=== PATIENT | female | born 1965 | race Caucasian/White ===

== ENCOUNTER 2019-04-30 08:47 | Outpatient (CLI) | payer BC ==
--- NOTE | 2019-05-14 07:46 | MMO ---
Bilateral MAMMO Bilat Screen [facility]. CLINICAL HISTORY: Patient is 54 years old and is seen for screening. The patient has a history of left Lumpectomy in 2001 - benign. VIEWS: The views performed were: bilateral craniocaudal with tomosynthesis and bilateral mediolateral oblique with tomosynthesis. FILMS COMPARED: The present examination has been compared to prior imaging studies performed at [facility] on 12/12/2014, 12/17/2015, 05/29/2017 and 05/10/2018. MAMMOGRAM FINDINGS: There are scattered fibroglandular densities. Finding 1: There are stable focal asymmetries seen in both breasts. Finding 2: There is a stable intramammary lymph node seen in the left breast. There are no suspicious masses, suspicious calcifications, or new areas of architectural distortion. IMPRESSION: THERE IS NO MAMMOGRAPHIC EVIDENCE OF MALIGNANCY. A ROUTINE FOLLOW-UP MAMMOGRAM IN 1 YEAR IS RECOMMENDED. THE RESULTS OF THIS EXAM WERE SENT TO THE PATIENT. ACR BI-RADS Category 2 - Benign finding MAMMOGRAPHY NOTE: 1. A negative mammogram report should not delay a biopsy if a dominant of clinically suspicious mass is present. 2. Approximately 10% to 15% of breast cancers are not detected by mammography. 3. Adenosis and dense breasts may obscure an underlying neoplasm. Reported by: SILVANA KUO MD Electonically Signed: [id number]
== END 2019-04-30 08:48 | disposition home or self-care (01) ==
LOC: BICMAMMO 08:47
PROVIDERS: ATTEND Family Medicine
DX: Z12.31 Encounter for screening mammogram for malignant neoplasm of breast (principal); Z91.89 Other specified personal risk factors, not elsewhere classified
CPT/HCPCS: 77063; 77067

== ENCOUNTER 2020-06-23 08:20 | Outpatient (CLI) | payer BC ==
--- NOTE | 2020-06-23 08:45 | BD ---
EXAM: DEXA bone density examination HISTORY: Menopause and osteoporosis screening COMPARISON: None FINDINGS: L1--bone mineral density 0.808 g/sq cm; T score -1.7. Z score -0.7 L2--bone mineral density 0.863 g/sq cm; T score -1.5; Z score -0.4 L3--bone mineral density 0.959 g/sq cm; T score -1.1; Z score 0.0 L4--bone mineral density 0.968 g/sq cm; T score -0.8, Z score 0.4 Total L1-L4--bone mineral density 0.907 g/sq cm; T score -1.3, Z score -0.1 Left femoral neck--bone mineral density0.700; T score -1.3, Z score -0.2 Total proximal left femur--bone mineral density 0.970; T score 0.2, Z score 1.2 This patient has a 10 year WHO fracture risk of a major osteoporotic fracture of 5.7% and of a hip fr acture of 0.3%. IMPRESSION: Based on the WHO criteria, the patient's bone mineral density is consideredOsteopenic. T he patient is at moderate risk for fracture.
--- NOTE | 2020-06-23 09:17 | MMO ---
Bilateral MAMMO Bilat Screen [facility]. CLINICAL HISTORY: Patient is 55 years old and is seen for screening. The patient has a history of left Lumpectomy in 2002 - benign. VIEWS: The views performed were: bilateral craniocaudal with tomosynthesis and bilateral mediolateral oblique with tomosynthesis. FILMS COMPARED: The present examination has been compared to prior imaging studies performed at [facility] on 04/30/2019, and at [facility] on 12/17/2015, 05/29/2017 and 05/10/2018. This study has been interpreted with the assistance of computer-aided detection. MAMMOGRAM FINDINGS: The breasts are almost entirely fat. There are two stable intramammary lymph nodes seen in the left breast. There are no suspicious masses, suspicious calcifications, or new areas of architectural distortion. IMPRESSION: THERE IS NO MAMMOGRAPHIC EVIDENCE OF MALIGNANCY. A ROUTINE FOLLOW-UP MAMMOGRAM IN 1 YEAR IS RECOMMENDED. THE RESULTS OF THIS EXAM WERE SENT TO THE PATIENT. ACR BI-RADS Category 2 - Benign finding MAMMOGRAPHY NOTE: 1. A negative mammogram report should not delay a biopsy if a dominant of clinically suspicious mass is present. 2. Approximately 10% to 15% of breast cancers are not detected by mammography. 3. Adenosis and dense breasts may obscure an underlying neoplasm. Reported by: DANIELLE ESCOBAR MD Electonically Signed: [id number]
== END 2020-06-23 08:21 | disposition home or self-care (01) ==
LOC: BICMAMMO 08:20
PROVIDERS: ATTEND Family Medicine
DX: Z12.31 Encounter for screening mammogram for malignant neoplasm of breast (principal); Z13.820 Encounter for screening for osteoporosis; E89.40 Asymptomatic postprocedural ovarian failure; M85.89 Other specified disorders of bone density and structure, multiple sites; Z91.89 Other specified personal risk factors, not elsewhere classified
CPT/HCPCS: 77063; 77067; 77080

== ENCOUNTER 2021-09-13 09:22 | Outpatient (CLI) | payer BC | END 2021-09-13 09:23 | disposition home or self-care (01) | LOC: CTENTCT 09:22 | PROVIDERS: ATTEND Otolaryngology Plastic Surgery within the Head & Neck | DX: J34.2 Deviated nasal septum (principal) | CPT/HCPCS: 70486 ==

== ENCOUNTER 2021-11-12 08:02 | Outpatient (CLI) | payer BC ==
[2021-11-12 19:56] LABS: SARS-CoV-2 PCR by NAA Not Detected (NotDetected)
== END 2021-11-12 08:03 | disposition home or self-care (01) ==
LOC: LABBT 08:02
PROVIDERS: ATTEND Otolaryngology Plastic Surgery within the Head & Neck
DX: Z01.818 Encounter for other preprocedural examination (principal); J34.2 Deviated nasal septum; J34.89 Other specified disorders of nose and nasal sinuses; K09.0 Developmental odontogenic cysts; Z20.822 Contact with and (suspected) exposure to COVID-19
CPT/HCPCS: 85014; U0003; U0005

== ENCOUNTER 2021-11-17 06:13 | Day surgery (SDC) | payer BC ==
[2021-11-12 11:58] VITALS: BMI 41.4
[2021-11-17] MEDS ORDERED: AFRIN NASAL MIST 15 ML BOT ONE (06:41)
[2021-11-17] MEDS ORDERED: Acetaminophen 500 MG TAB ONE (07:17)
[2021-11-17] MEDS ORDERED: Oxymetazoline HCl 0.05% (30 ML BOT) ONE (08:11)
[2021-11-17] MEDS ORDERED: Bacitracin Zinc Ointment 30 gm TUBE ONE (08:11)
[2021-11-17] MEDS ORDERED: Xylocaine 1% w/ Epi 1:100K 10 ML VIAL ONE (08:11)
[2021-11-17] MEDS ORDERED: Fentanyl 100 MCG/2 ML VIAL ONE (08:16)
[2021-11-17] MEDS ORDERED: Dexamethasone 20 MG/5 ML VIAL ONE (08:30)
[2021-11-17] MEDS ORDERED: PROPOFOL 200 MG/20 ML VIAL ONE (08:30)
[2021-11-17] MEDS ORDERED: Ondansetron PF 4 MG/2 ML Vial ONE (08:30)
[2021-11-17] MEDS ORDERED: Lidocaine 1% PF 5 ML VIAL ONE (08:30)
== END 2021-11-17 10:08 | disposition home or self-care (01) ==
LOC: SDC 06:13
PROVIDERS: ATTEND Otolaryngology Plastic Surgery within the Head & Neck
PROC: 09QK0ZZ Repair Nasal Mucosa and Soft Tissue, Open Approach (ICD-10-PCS; principal; 2021-11-17)
PROC: 09SM0ZZ Reposition Nasal Septum, Open Approach (ICD-10-PCS; principal; 2021-11-17)
DX: J34.2 Deviated nasal septum (principal); J34.89 Other specified disorders of nose and nasal sinuses; E78.5 Hyperlipidemia, unspecified; E89.0 Postprocedural hypothyroidism; E66.01 Morbid (severe) obesity due to excess calories; Z68.41 Body mass index [BMI] 40.0-44.9, adult; Z87.11 Personal history of peptic ulcer disease; Z79.82 Long term (current) use of aspirin; Z79.899 Other long term (current) drug therapy; Z91.012 Allergy to eggs
CPT/HCPCS: C1889; J3010

== ENCOUNTER 2022-02-17 10:46 | Outpatient (CLI) | payer BC | END 2022-02-17 10:47 | disposition home or self-care (01) | LOC: BICRAD 10:46 | PROVIDERS: ATTEND Internal Medicine Infectious Disease | DX: M86.172 Other acute osteomyelitis, left ankle and foot (principal) ==

== ENCOUNTER 2022-02-27 10:31 | Emergency (ER) | payer BC | END 2022-02-27 11:37 | disposition home or self-care (01) | LOC: ERS 10:31 | DX: T82.594A Other mechanical complication of infusion catheter, initial encounter (principal) | CPT/HCPCS: 99283 ==

== ENCOUNTER 2022-03-05 11:40 | Emergency (ER) | payer BC ==
[~2022-03-05 11:40] MED LIST: Iopamidol-370 76% 500 ML 1 ML ONE
[2022-03-05 13:57] LABS: #Basophils 0.1 thou/uL (0.0-0.2); #Eosinphils 0.3 thou/uL (0.0-0.7); #Lymphocytes 1.8 thou/uL (1.20-3.40); #Monocytes 0.6 thou/uL (0.11-0.59); #Neutrophils 8.2 thou/uL (1.40-6.50); %Basophils 0.8 % (0.0-1.0); %Eosinophils 3.1 % (0.0-10.0); %Lymphocytes 16.5 % (21.0-51.0); %Monocytes 5.5 % (0.0-10.0); %Neutrophils 74.1 % (42.0-75.0); Hemoglobin 15.4 g/dL (12.0-16.0); Mean Corpuscular HGB CONC 31.9 g/dL (32.0-36.0); Mean Corpuscular Hemoglobin 27.9 pg (27.0-31.0); Mean Corpuscular Volume 87.5 fL (78.0-98.0); Mean Platelet Volume 6.5 fL (7.4-10.4); Platelet Count 402 thou/uL (130-400); RBC Distribution Width 15.9 % (11.5-14.5); Red Blood Cell (RBC) Count 5.54 mill/uL (4.20-5.40); White Blood Cell (WBC) Count 11.1 thou/uL (4.8-10.8)
[2022-03-05 14:08] LABS: PTT 27.9 sec (22.9-36.1)
[2022-03-05 14:18] LABS: ALT (SGPT) 30 U/L (8-55); AST (SGOT) 22 U/L (5-34); Albumin 4.8 g/dL (3.5-5.0); Alkaline Phosphatase 82 U/L (40-110); Anion Gap 16 mmol/L (10-20); BUN (Urea Nitrogen) 13 mg/dL (9.8-20.1); Bilirubin, Total 0.4 mg/dL (0.2-1.2); Calc. Creatinine Clearance 0 mL/min (70-130); Calcium 9.8 mg/dL (7.8-10.44); Carbon Dioxide 22 mmol/L (22-29); Chloride 106 mmol/L (98-107); Globulin 3.1 g/dL (2.4-3.5); Glucose 94 mg/dL (70-105); Potassium 4.2 mmol/L (3.5-5.1); Protein, Total 7.9 g/dL (6.0-8.3); Sodium 140 mmol/L (136-145)
== END 2022-03-05 16:55 | disposition home or self-care (01) ==
LOC: ERS 11:40
DX: T82.848A Pain due to vascular prosthetic devices, implants and grafts, initial encounter (principal); R07.89 Other chest pain
CPT/HCPCS: 36415; 71275; 80053; 84484; 85025; 85610; 85730; 93005

== ENCOUNTER 2022-03-21 08:53 | Outpatient (CLI) | payer BC | END 2022-03-21 08:54 | disposition home or self-care (01) | LOC: BICRAD 08:53 | PROVIDERS: ATTEND Internal Medicine Infectious Disease | DX: M86.272 Subacute osteomyelitis, left ankle and foot (principal) ==

== ENCOUNTER 2023-09-19 08:02 | Outpatient (CLI) | payer BC | END 2023-09-19 08:03 | disposition home or self-care (01) | LOC: BICMAMMO 08:02 | PROVIDERS: ATTEND Family Medicine | DX: N63.12 Unspecified lump in the right breast, upper inner quadrant (principal) | CPT/HCPCS: 77066; G0279 ==